=== PATIENT | male | born 1950 | race Caucasian/White ===

== ENCOUNTER → 2024-11-19 09:01 | Outpatient (CLI) | payer MEDICARE, OTHER, SELFPAY ==
[2024-11-19 19:20] LABS: Alanine Aminotransferase 27 IU/L (<50); Albumin 4.1 g/dL (3.5-5.0); Albumin Globulin Ratio 1.9 (1.0-2.8); Alkaline Phosphatase 52 U/L (38-126); Blood Urea Nitrogen 19 mg/dL (9-20); Calcium 9.2 mg/dL (8.4-10.2); Carbon Dioxide 27 mmol/L (22-32); Chloride 106 mmol/L (98-107); Estimated Glomerular Filt Rate > 60 mL/min (>60); Globulin 2.2 g/dL (1.7-4.1); Glucose 95 mg/dL (70-99); HEMOLYSIS < 15 (0-50); Potassium 4.3 mmol/L (3.4-5.1); Sodium 138 mmol/L (137-145); Total Protein 6.3 g/dL (6.3-8.2)
[2024-11-19 19:25] LABS: Hemoglobin A1C% w Est Avg Glu 5.6 % (4.0-6.0)
[2024-11-19 19:29] LABS: Vitamin D 25 Hydroxy (D3) 48.8 ng/mL (30.0-100.0)
[2024-11-19 19:49] LABS: Estradiol, Total 34.7 pg/mL
[2024-11-21 04:08] LABS: CRP, High Sensitivity 1.00 mg/L (0.00-3.00)
[2024-11-22 07:09] LABS: Insulin Level Total 6.5 uIU/mL (2.6-24.9)
[2024-12-03 08:36] LABS: Percent Free Testosterone 2.32 % (1.50-4.20)
== END ==
PROVIDERS: PCP Family Medicine; Visit Provider Family Medicine
DX: E55.9 Vitamin D deficiency, unspecified (principal); E78.2 Mixed hyperlipidemia; Z13.1 Encounter for screening for diabetes mellitus; N52.9 Male erectile dysfunction, unspecified; Z13.6 Encounter for screening for cardiovascular disorders; Z13.0 Encounter for screening for diseases of the blood and blood-forming organs and certain disorders involving the immune mechanism
CPT/HCPCS: 80053; 80061; 82306; 82670; 83036; 83090; 83525; 83704; 83721; 84270; 84402; 84403; 86140